=== PATIENT | male | born 1985 | race Caucasian/White ===

== ENCOUNTER → 2023-12-11 18:33 | Outpatient (REF) | payer BC, SELFPAY | LOC: MRI 3T 18:33 | PROVIDERS: ATTENDING PHYSICIAN Surgery; FAMILY PHYSICIAN Internal Medicine | DX: M53.3 Sacrococcygeal disorders, not elsewhere classified (principal) | CPT/HCPCS: 72197; A9575 ==

== ENCOUNTER 2024-11-30 12:01 | Emergency (ER) | payer BC, SELFPAY ==
[2024-11-30 12:12] VITALS: BP 148/98
[2024-11-30 12:32] LABS: Hematocrit 38.8 % (39.0-52.0); Hemoglobin 13.2 g/dL (13.0-18.0); Mean Corp Hgb Conc. 34.0 g/dL (33.0-37.0); Mean Corpuscular Volume 86.6 fL (80.0-94.0); Nucleated Red Blood Cells % 0 % (-); Platelet Count 244 10^3/uL (130-400); Red Cell Dist. Width 12.0 % (11.5-14.5)
[2024-11-30 12:58] LABS: ALT (SGPT) 51 U/L (0-50); AST (SGOT) 36 U/L (17-59); Albumin 4.7 g/dl (3.5-5.0); Alkaline Phosphatase 115 U/L (38-126); Blood Urea Nitrogen 18 mg/dl (9-20); Calcium 9.7 mg/dl (8.4-10.2); Carbon Dioxide 27 mmol/L (22-30); Chloride 106 mmol/L (98-107); Glucose 103 mg/dl (70-99); Lipase 161 U/L (23-300); Potassium 4.1 mmol/L (3.5-5.1); Sodium 138 mmol/L (135-145); Total Protein 7.3 g/dl (6.3-8.2); eGFR > 60.00
[2024-11-30 13:47] VITALS: BMI 19.1
[2024-11-30] MEDS: OMNIPAQUE 50 ML PO (13:47)
--- NOTE | 2024-11-30 13:48 | ED.GENMED ---
History of Present Illness
<CARRIE Horowitz Jr. Last Filed: 12/01/24 08:11>
General
Chief Complaint: Abdominal Symptoms
Source: patient
Exam Limitations: none
Time Seen by Provider: 11/30/24 13:30
Nursing documentation reviewed up to this point in time: agreed with
History of Present Illness
History of Present Illness:
39-year-old male presenting to the emergency department today with concerns of right-sided flank right-sided lower abdominal pain getting worse over the past 2 days. Feeling worse this morning increased after eating and drinking today. Claims to
feel somewhat 'sick' with fatigue, chills. Lightheadedness.
Past History
<CARRIE Horowitz Jr. Last Filed: 12/01/24 08:11>
Past History
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
ED Past Surgical History: None
Social History
Tobacco: Non-smoker
Alcohol: Occasional
Drug: Marijuana
Personal: Single
Living: with family
Employment: Employed
Family History
Family History: Other (A-fib heart aneurysm); Negative Early CAD
Review of Systems
<CARRIE Horowitz Jr. Last Filed: 12/01/24 08:11>
Review of Systems
Allergies reviewed?: Yes
All Other Systems: ROS reviewed and negative except as documented in HPI and ROS
Phy Exam
<CARRIE Horowitz Jr. Last Filed: 12/01/24 08:11>
Physical Exam
Physical Exam:
GENERAL: Alert , in no apparent distress
EYE: pupils equal and reactive
NECK: Supple, no significant adenopathy.
ENT: o/p clr, mmm.
CARDIAC: Regular rate and rhythm .
LUNGS: Clear breath sounds bilaterally, no acute respiratory distress, no wheezes/rales/rhonchi
ABDOMEN: Right-sided flank and right lower quadrant abdominal pain to palpation.
NEUROLOGICAL: Alert and oriented, no focal neuro deficits
SKIN: Warm and dry, skin intact.
MUSCULOSKELETAL: Patient moving freely with no obvious discomfort change in positioning no edema, well perfused.
PSYCH: Normal and appropriate interaction.
Course
<Mathieu Nath Jr., PA-C - Last Filed: 12/01/24 08:11>
Orders/Labs/Results
Orders:
Orders
11/30/24 12:14
IV Insert/Care/Rem.- Treatment PRN
11/30/24 12:21
Complete Blood Count/With Diff Urgent
Comprehensive Metabolic Panel Urgent
Lipase Urgent
11/30/24 13:36
CT Abd/pel W Iv And Oral Contr Urgent
Comment:
Reason For Exam: RLQ pain
Iohexol [Omnipaque] See Protocol PO NOW STA
11/30/24 15:24
Urinalysis Reflex To Culture Urgent
Date Specimen was Collected: 11/30/24
Time Specimen was Collected: 15:08
Abnormal Lab Results
11/30/24
12:21
RBC 4.48 L 10^6/uL
(4.70-6.10)
Hct 38.8 L %
(39.0-52.0)
Glucose 103 H mg/dl
(70-99)
Total Bilirubin 1.6 H mg/dl
(0.2-1.3)
ALT 51 H U/L
(0-50)
11/30/24 12:21
11/30/24 12:21
Vital Signs
Initial and Last Documented VS:
Initial Vital Signs
Temp Pulse Resp BP Pulse Ox
98.3 F 96 16 148/98 98
11/30/24 12:12 11/30/24 12:12 11/30/24 12:12 11/30/24 12:12 11/30/24 12:12
Last Documented Vital Signs
Temp Pulse Resp BP Pulse Ox
98.3 F 75 18 133/95 98
11/30/24 12:12 11/30/24 17:00 11/30/24 17:00 11/30/24 17:00 11/30/24 17:00
<Kvng Alvarez PA-C - Last Filed: 11/30/24 17:17>
Orders/Labs/Results
Orders:
Orders
11/30/24 12:14
IV Insert/Care/Rem.- Treatment PRN
11/30/24 12:21
Complete Blood Count/With Diff Urgent
Comprehensive Metabolic Panel Urgent
Lipase Urgent
11/30/24 13:36
CT Abd/pel W Iv And Oral Contr Urgent
Comment:
Reason For Exam: RLQ pain
Iohexol [Omnipaque] See Protocol PO NOW STA
11/30/24 15:24
Urinalysis Reflex To Culture Urgent
Date Specimen was Collected: 11/30/24
Time Specimen was Collected: 15:08
Abnormal Lab Results
11/30/24
12:21
RBC 4.48 L 10^6/uL
(4.70-6.10)
Hct 38.8 L %
(39.0-52.0)
Glucose 103 H mg/dl
(70-99)
Total Bilirubin 1.6 H mg/dl
(0.2-1.3)
ALT 51 H U/L
(0-50)
11/30/24 12:21
11/30/24 12:21
Vital Signs
Initial and Last Documented VS:
Initial Vital Signs
Temp Pulse Resp BP Pulse Ox
98.3 F 96 16 148/98 98
11/30/24 12:12 11/30/24 12:12 11/30/24 12:12 11/30/24 12:12 11/30/24 12:12
Last Documented Vital Signs
Temp Pulse Resp BP Pulse Ox
98.3 F 75 18 133/95 98
11/30/24 12:12 11/30/24 17:00 11/30/24 17:00 11/30/24 17:00 11/30/24 17:00
<Mathieu Nath Jr., PA-C - Last Filed: 12/01/24 08:11>
MDM/Problems Addressed
MDM/Problems Addressed:
39-year-old male presenting to the emergency department today with concerns of right-sided flank and lower quadrant abdominal pain worsening over the past 24 hours or so. on arrival vital signs normal. Patient does have reproducible discomfort to
the right lower quadrant and right flank area. Concerning this plan for CT scan for further assessment. CT scan pending when care transition.
<Mathieu Nath Jr., PA-C - Last Filed: 12/01/24 08:11>
*Pulse Oximetry
SaO2: 98
Oxygen Mode of Delivery: Room air
<Kvng Alvarez PA-C - Last Filed: 11/30/24 17:17>
*Pulse Oximetry
Patient hypoxic: no
*Critical Care Note
Total Time (30-74mins, 75-104mins- exclusive of procedures): Not Applicable
<Kvng Alvarez PA-C - Last Filed: 11/30/24 17:17>
Update Note
Update Note:
170: Discussed CT findings with pt. Proximal colon stool burden may be explaining his symptoms. Discussed use of mild laxatives. D/C in stable condition
ED Attending Note
<Mathieu Nath Jr., PA-C - Last Filed: 12/01/24 08:11>
-
Portions of this chart may have been created with voice recognition software.� Occasional wrong word or��sound alike� substitutions may have occurred due to the inherent limitations of voice recognition software.
Discharge Plan
Departure
Patient Disposition: Home (Routine Discharge)
Date of Disposition: 11/30/24
Time of Disposition: 17:07
Patient with high blood pressure during this ER visit?: No
Discharge Problem:
Abdominal pain
Instructions: Abdominal Pain
Prescriptions:
No Action
cetirizine [Zyrtec] 10 mg Tablet
10 mg PO DAILY
triamcinolone acetonide 0.1 % Cream
1 applic TOPICAL DAILYPRN PRN (Reason: ringworm)
Patient Comments:
03/11/23 Patient states he got this medication filled one year ago. No ECW.
ibuprofen 600 mg tablet
600 mg PO Q8H PRN (Reason: Pain) Qty: 20 0RF
Referrals:
Segundo Terrell I., DO [Family Provider, Internal Medicine]
Interventions
Interventions:
*Risk Screen - Suicide Last Done: 11/30/24 12:12
*General Assessment Last Done: 11/30/24 12:12
*Neglect/Abuse Screening Last Done: 11/30/24 12:12
*Nursing Disposition Last Done: 11/30/24 17:14
JB-Vtvtsh-Dazjykeutv Assessment Last Done: 11/30/24 13:40
Discharge Date and Time
Discharge Date/Time: 11/30/24 17:20
Print Language: DANISH
[2024-11-30 16:20] LABS: Urine Character Clear (Clear)
[2024-11-30 17:00] VITALS: BP 133/95
== END 2024-11-30 17:20 | disposition home or self-care (01) ==
LOC: EMR 12:01
PROVIDERS: Physician Assistant; Student in an Organized Health Care Education/Training Program; EMERGENCY PHYSICIAN Emergency Medicine; FAMILY PHYSICIAN Internal Medicine
DX: R10.30 Lower abdominal pain, unspecified (principal); R42 Dizziness and giddiness
CPT/HCPCS: 99284; 74177; 80053; 81003; 83690; 85025; Q9967

== ENCOUNTER 2025-04-10 16:06 | Emergency (ER) | payer BC, SELFPAY ==
[2025-04-10 16:11] VITALS: BP 125/93
[2025-04-10 16:56] VITALS: BP 126/97
[2025-04-10 17:00] VITALS: BP 124/86
--- NOTE | 2025-04-10 17:13 | ED.GENMED ---
History of Present Illness
General
Chief Complaint: Chest Pain
Source: patient
Exam Limitations: none
Time Seen by Provider: 04/10/25 17:02
Nursing documentation reviewed up to this point in time: agreed with
History of Present Illness
History of Present Illness:
Patient to emergency department for evaluation of chest pain, muscle spasms in his chest. Symptoms started approximately 3 days ago. He denies any associated nausea vomiting diaphoresis. Symptoms are intermittent. There are no aggravating or
alleviating factors. Chest pain does not radiate. He denies any shortness of breath, denies any difficulty with ADLs. Brought self to the emergency department for evaluation. He is currently symptom-free.
Past History
Past History
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
ED Past Surgical History: None
Social History
Tobacco: Non-smoker
Alcohol: Occasional
Drug: Marijuana
Personal: Single
Living: with family
Employment: Employed
Family History
Family History: Other (A-fib heart aneurysm); Negative Early CAD
Review of Systems
Review of Systems
Allergies reviewed?: Yes
All Other Systems: ROS reviewed and negative except as documented in HPI and ROS
Constitutional: Reports no symptoms
EENT: Reports no symptoms
Respiratory: Reports no symptoms
Cardiac: Reports chest pain (Left chest pain)
ABD/GI: Reports no symptoms
: Reports no symptoms
Musculoskeletal: Reports other (Muscle spasms in chest.)
Skin: Reports no symptoms
Neurological: Reports no symptoms
Psychiatric: Reports no symptoms
Phy Exam
General Physical Exam
General Presentation: well appearing and no apparent distress
General age: appears stated age
General Skin: warm and dry
General Habitus: normal
General Mental: alert
Cardiovascular Exam
Cardiovascular Exam: regular rate/rhythm and no edema
Pulmonary Exam
Pulmonary Exam: lungs clear and no respiratory distress
Musculoskeletal Exam
Musculoskeletal Exam: full ROM and neuro vasc intact
Skin Exam
Skin Exam: normal color, warm/dry and no rash
Psychiatric Exam
Psychiatric Exam: normal mood/affect
Scores
Heart Score for Chest Pain Patients
STEMI patient?: No
History: Slightly or Non-Suspicious
ECG: Normal
Age: </= 45 years
Risk Factors: No Risk Factors
Troponin: </= Normal Limit
Heart Score for Chest Pain Patients: 0
Heart Score Risk: 2.5% MACE over next 6 weeks
Course
Orders/Labs/Results
Orders:
Orders
04/10/25 16:08
EKG [Electrocardiogram (*1)] Urgent
Reason for Study: Chest Pain
EKG- Treatment ONCE
04/10/25 17:04
Complete Blood Count/With Diff Urgent
Comprehensive Metabolic Panel Urgent
Troponin I Urgent
04/10/25 17:12
D-Dimer Urgent
04/10/25 17:13
CR Chest - 2 Views Urgent
Comment:
Reason For Exam: pain
Abnormal Lab Results
04/10/25
17:04
Sodium 133 L mmol/L
(135-145)
Total Bilirubin 2.3 H mg/dl
(0.2-1.3)
04/10/25 17:04
04/10/25 17:04
Vital Signs
Initial and Last Documented VS:
Initial Vital Signs
Temp Pulse Resp BP Pulse Ox
98.2 F 91 16 125/93 98
04/10/25 16:11 04/10/25 16:11 04/10/25 16:11 04/10/25 16:11 04/10/25 16:11
Last Documented Vital Signs
Temp Pulse Resp BP Pulse Ox
98.5 F 68 18 120/74 99
04/10/25 18:13 04/10/25 18:13 04/10/25 18:13 04/10/25 18:15 04/10/25 18:13
*Radiology
Radiology exam reviewed: radiology read reviewed
*Pulse Oximetry
SaO2: 98
Oxygen Mode of Delivery: Room air
Patient hypoxic: no
*Critical Care Note
Total Time (30-74mins, 75-104mins- exclusive of procedures): Not Applicable
Update Note
Update Note:
Patient to the emergency department for evaluation of left-sided chest pain. He states his symptoms started on Saturday, are intermittent. There is no associated nausea/vomiting/diaphoresis. Pain does not radiate. No shortness of breath. He
also notes muscle spasms to his left chest also. He arrives to the ED asymptomatic and has remained asymptomatic. Vital signs are stable he remains afebrile. Heart rate is regular, EKG NSR. Lungs clear to auscultation. Pulse ox 98% room air.
Troponin negative, D-dimer negative. This does not appear to be related to a cardiac issue, however will recommend close follow-up with PCP. He is agreeable with this. He is discharged home. He was given instructions on signs and symptoms to
return to the emergency department and he is agreeable with this plan.
ED Attending Note
-
Portions of this chart may have been created with voice recognition software.� Occasional wrong word or��sound alike� substitutions may have occurred due to the inherent limitations of voice recognition software.
Discharge Plan
Departure
Patient Disposition: Home (Routine Discharge)
Date of Disposition: 04/10/25
Time of Disposition: 18:25
Patient with high blood pressure during this ER visit?: No
Condition: Good
Covid-19: Not Applicable
Discharge Problem:
Chest pain in adult
Instructions: Chest Pain That Is Not Caused by the Heart (DC), Chest Pain PCP Follow Up
Prescriptions:
No Action
cetirizine [Zyrtec] 10 mg Tablet
10 mg PO DAILY
triamcinolone acetonide 0.1 % Cream
1 applic TOPICAL DAILYPRN PRN (Reason: ringworm)
Patient Comments:
03/11/23 Patient states he got this medication filled one year ago. No ECW.
ibuprofen 600 mg tablet
600 mg PO Q8H PRN (Reason: Pain) Qty: 20 0RF
Referrals:
Segundo Terrell I., DO [Family Provider, Internal Medicine] - Tomorrow
Activity Restrictions/Additional Instructions:
Return to the emergency department immediately for any changes in/worsening of your symptoms.
Interventions
Interventions:
*Risk Screen - Suicide Last Done: 04/10/25 16:11
*Neglect/Abuse Screening Last Done: 04/10/25 16:11
ED- Cardiac Assessment Last Done: 04/10/25 18:02
Discharge Date and Time
Print Language: [place]
[2025-04-10 17:22] LABS: Hematocrit 39.8 % (39.0-52.0); Hemoglobin 13.7 g/dL (13.0-18.0); Mean Corp Hgb Conc. 34.4 g/dL (33.0-37.0); Mean Corpuscular Volume 84.3 fL (80.0-94.0); Nucleated Red Blood Cells % 0 % (-); Platelet Count 274 10^3/uL (130-400); Red Cell Dist. Width 12.0 % (11.5-14.5)
[2025-04-10 17:38] LABS: D-Dimer 0.40 ug/mlFEU (0.00-0.50)
[2025-04-10 17:39] LABS: ALT (SGPT) 41 U/L (0-50); AST (SGOT) 35 U/L (17-59); Albumin 5.0 g/dl (3.5-5.0); Alkaline Phosphatase 99 U/L (38-126); Blood Urea Nitrogen 16 mg/dl (9-20); Calcium 9.7 mg/dl (8.4-10.2); Carbon Dioxide 24 mmol/L (22-30); Chloride 103 mmol/L (98-107); Glucose 97 mg/dl (70-99); Potassium 4.0 mmol/L (3.5-5.1); Sodium 133 mmol/L (135-145); Total Protein 7.8 g/dl (6.3-8.2); eGFR > 60.00
[2025-04-10 17:50] LABS: Troponin I < 0.012 ng/ml
[2025-04-10 18:15] VITALS: BP 120/74
[2025-04-10 18:38] VITALS: BP 120/74
== END 2025-04-10 18:40 | disposition home or self-care (01) ==
LOC: EMR 16:06
PROVIDERS: Nurse Practitioner; EMERGENCY PHYSICIAN Emergency Medicine; FAMILY PHYSICIAN Internal Medicine
DX: R07.9 Chest pain, unspecified (principal)
CPT/HCPCS: 99285; 71046; 80053; 84484; 85025; 85379; 93005